=== PATIENT | female | born 1990 | race Caucasian/White ===

== ENCOUNTER 2024-01-31 17:28 | Emergency (ER) | payer OTHER, SELFPAY ==
[2024-01-31 17:51] VITALS: BP 130/88; BP 161/96; PULSE 91; PULSE 96; RESP 18; TEMP 36.8; O2SAT 100; O2SAT 99; BMI 23.0
[2024-01-31 17:56] VITALS: PULSE 82; RESP 14; O2SAT 98
--- NOTE | 2024-01-31 17:58 | PC.NURSE ---
patient comes in on a section 12 from [facility] due to increasing SI with no clear plan. Patient is calm and cooperative with care thus far, requesting to go to [facility] [place] [facility]. Patient otherwise offers no complaints, denies AH/VH/HI.
[2024-01-31 18:33] LABS: Amphetamine Screen Urine Not Detected (Not Detect); Barbiturates, Urine Not Detected (Not Detect); Benzodiazepines Screen Urine Not Detected (Not Detect); Buprenorphine Scr Positive (Not Detect); Cannabinoid Screen Urine Not Detected (Not Detect); Cocaine Screen Urine Not Detected (Not Detect); Fentanyl, urine Not Detected (Not Detect); Methadone Screen, Urine Not Detected (Not Detect); Opiate Screen Urine Not Detected (Not Detect); Oxycodone Screen Urine Not Detected (Not Detect); Phencyclidine Screen Urine Not Detected (Not Detect)
--- NOTE | 2024-01-31 18:40 | ED_ITS ---
HPI - General Adult General Chief complaint: Psychiatric Symptoms Stated complaint: SI,SECT 12 Time Seen by Provider: 01/31/24 17:59 Source: patient Mode of arrival: ambulatory Limitations: no limitations History of Present Illness HPI narrative: 33-year-old female past medical history of PTSD and depression presents to ED for suicidal thoughts with no plan. Patient already seen by [facility] and was section 12. Patient states feeling overwhelmed. Patient denies any physical complaints. States compliant with meds. Patient currently does not have a therapist Related Data Home Medications ?Medication ?Instructions ?Recorded ?Confirmed clonidine HCl 0.2 mg tablet 0.2 mg PO BID 01/31/24 01/31/24 gabapentin 300 mg capsule 300 mg PO TID 01/31/24 01/31/24 nicotine (polacrilex) 2 mg buccal 2 mg Q2-3H PRN Nicotine Cravings 01/31/24 01/31/24 mini lozenge buprenorphine 12 mg-naloxone 3 mg 1 film sublingual DAILY 02/01/24 02/01/24 sublingual film (Suboxone) bupropion HCl 300 mg 24 hr tablet, 300 mg PO DAILY 02/01/24 02/01/24 extended release Allergies Allergy/AdvReac Type Severity Reaction Status Date / Time No Known Allergies Allergy Verified 01/31/24 17:53 Review of Systems 2 Review of Systems: Suicidal thoughts no plan Yes all other systems are reviewed and are negative [facility] Social History Social History Smoked in Last 30 Days: Yes Use of substances other than those prescribed or required for medical reasons: No Advance Directives: No Advance Directives Information Provided: No Patient : No Physical Exam ED Vital Signs: Vital Signs - 24 hr 01/31/24 17:51 01/31/24 17:56 01/31/24 22:15 Temperature 98.3 F 98.4 F Pulse Rate 91 82 77 Respiratory Rate 18 14 20 Blood Pressure 161/96 H 156/94 H Pulse Oximetry 100 98 100 Oxygen Delivery Method Room Air Room Air Room Air 02/01/24 02:40 02/01/24 07:20 Temperature 97.4 F 98.6 F Pulse Rate 72 65 Respiratory Rate 16 16 Blood Pressure 135/77 145/85 H Pulse Oximetry 99 100 Oxygen Delivery Method Room Air Room Air BMI result Body Mass Index 23.0 Const General: cooperative, healthy appearing, comfortable, no acute distress, well developed, alert, awake and Physically active Orientation/consciousness: oriented to person, oriented to place, oriented to time and patient oriented x3 [facility] Head: Yes normal to inspection, Yes No palpable skull fracture present, Yes normocephalic, Yes atraumatic and No abrasion Eyes General: appearance normal, both eyes and all related structures Neck Neck: Yes normal visual inspection, Yes full ROM, Yes no lymphadenopathy, Yes no meningeal signs, Yes trachea midline, Yes supple, No anterior neck swelling and No tender Chest Chest palpation & inspection: normal inspection of the chest and normal palpation of entire chest wall Resp Effort & Inspection: normal respiratory effort and able to speak in complete sentences Auscultation: clear to auscultation bilaterally Cardio Jugular venous distension: no JVD Heart sounds: S1 normal heart sound present and S2 normal heart sound present GI Inspection: Yes normal to inspection Palpation (GI): Soft to palpation, not firm, nontender, no guarding and not rigid General: Yes no CVA tenderness Back/Spine/Pelvis Back: no CVA tenderness and No back tenderness Skin General skin exam: no rashes or lesions noted, elasticity normal and turgor normal Neuro General: oriented to person, oriented to place, oriented to time, patient oriented x3, gait normal, tone normal, moves all extremities, Normal light touch and pain sensation, no meningeal signs, no focal motor deficits, CN's II-XI intact bilaterally and normal sensation to monofilament Extrem General: Yes normal to inspection, Yes full ROM and Yes capillary refill normal Psych Appearance: grossly normal, well kempt and not disheveled Course Reevaluation(s) Reevaluation #1: End of physician observation, patient being transferred to [facility], resting comfortably, no distress Time: 07:44 Medications Administered Discontinued Medications Generic Name Dose Route Start Last Admin Trade Name Michealq PRN Reason Stop Dose Admin Acetaminophen 975 mg 02/01/24 08:49 02/01/24 09:01 Acetaminophen 325 Mg Tablet PO 02/01/24 08:50 975 mg ONCE ONE Administration Buprenorphine/Naloxone 1 film 02/01/24 10:46 02/01/24 11:13 Buprenorphine/Naloxone 12/3 Mg Film SUBLINGUAL 02/01/24 10:47 1 film ONCE ONE Administration Bupropion HCl 300 mg 02/01/24 08:49 02/01/24 09:01 Bupropion Hcl Xl 300 Mg Tab.Er.24h PO 02/01/24 08:50 300 mg ONCE ONE Administration Clonidine HCl 0.2 mg 01/31/24 22:30 02/01/24 09:01 Clonidine Hcl 0.2 Mg Tablet PO 0.2 mg BID IVANIA Administration Protocol Gabapentin 300 mg 01/31/24 22:30 02/01/24 09:01 Gabapentin 300 Mg Capsule PO 300 mg TID IVANIA Administration Ibuprofen 600 mg 01/31/24 21:22 01/31/24 21:32 Ibuprofen 600 Mg Tablet PO 01/31/24 21:23 600 mg ONCE ONE Administration Melatonin 9 mg 02/01/24 01:27 02/01/24 01:36 Melatonin 3 Mg Tablet PO 02/01/24 01:28 9 mg ONCE ONE Administration Nicotine Polacrilex 2 mg 01/31/24 23:50 02/01/24 00:21 Nicotine Polacrilex Lozenge 2 Mg Lozenge BUCCAL 01/31/24 23:51 2 mg ONCE ONE Administration Medical Decision Making Medical Decision Making [facility] Narrative: 33-year-old female presents to ED for suicidal ideation without any plan. Patient will have labs drawn. Waiting plan for [facility]. RME; patient's labs are normal baseline. Care team consulted states patient will be going to [facility]. Differential Diagnosis Differential Diagnoses: The differential diagnosis associated with the presentation includes (Depression, suicidal) Admission/Observation Consideration of admission/observation: Escalation of care including admission/observation considered Consult Healthcare Provider Management of the patient was discussed with: Jumbo Operator (RADHA) Lab Data [facility] Lab Attestation statement: I reviewed the patient's lab results. 01/31/24 18:41 01/31/24 18:40 Labs: Lab Results 01/31/24 01/31/24 01/31/24 Range/Units 18:05 18:40 18:41 WBC 9.8 (4.8-10.8) X10*3/uL RBC 3.95 L (4.20-5.50) X10*6/uL Hgb 12.9 (12.0-16.0) g/dl Hct 36.5 L (37.0-47.0) % MCV 92.4 (80.0-98.0) fL MCH 32.7 (27.0-33.0) pg MCHC 35.3 H (31.0-35.0) g/dl RDW 11.6 (11.0-16.0) % Plt Count 259 (160-400) X10*3/uL MPV 10.9 (9.4-12.3) fL Immature Gran % (Auto) 0.3 (0.0-0.4) % Neut % (Auto) 77.5 H (45-73) % Lymph % (Auto) 16.3 L (20-40) % [place] % (Auto) 4.8 (2-11) % Eos % (Auto) 0.6 (0-4) % Baso % (Auto) 0.5 (0-2) % Lymph # (Auto) 1.6 (1.2-4.9) X10*3/uL [place] # (Auto) 0.5 (0.1-1.2) X10*3/uL Eos # (Auto) 0.1 (0.0-0.4) X10*3/uL Baso # (Auto) 0.1 (0.0-0.2) X10*3/uL Abs Immat Gran (auto) 0.03 (0.00-0.03) X10*3/uL Absolute Neuts (auto) 7.6 (2.0-8.3) x10*3/uL Absolute Nucleated RBC 0.000 (0.0-0.012) X10*3/uL Nucleated RBC % (auto) 0.0 (0.0-0.2) /100WBC Sodium 138 (135-145) mmol/L Potassium 4.6 (3.3-5.1) mmol/L Chloride 105 (96-108) mmol/L Carbon Dioxide 25 (22-29) mmol/L Anion Gap 13 (12-20) BUN 8 L (9-16) mg/dL Creatinine 0.71 (0.5-1.4) mg/dL Estim Creat Clear Calc 91.5 Estimated GFR > 60 Random Glucose 106 (60-115) mg/dL Calcium 9.5 (8.4-10.2) mg/dL Total Bilirubin 0.2 (0.0-1.0) mg/dL AST 14 (5-31) U/L ALT 12 (0-31) U/L Alkaline Phosphatase 56 (39-117) U/L Total Protein 7.2 (6.5-8.0) g/dL Albumin 4.7 (3.5-5.0) g/dL Urine Color Yellow Urine Appearance Clear Urine pH 8.5 (5.0-9.0) Ur Specific [place] 1.010 (1.005-1.025) Urine Protein Negative (Neg-Trace) mg/dL Urine Glucose (UA) Negative (Negative) mg/dL Urine Ketones Negative (Negative) mg/dL Urine Blood Negative (Negative) Urine Nitrite Negative (Negative) Ur Leukocyte Esterase Negative (Negative) Urine Test NEGATIVE (NEGATIVE) Urine Opiates Screen Not Detected (Not Detect) Ur Buprenorphine Scrn Positive H (Not Detect) ng/mL Ur Oxycodone Screen Not Detected (Not Detect) ng/mL Urine Methadone Screen Not Detected (Not Detect) ng/mL Urine Fentanyl Screen Not Detected (Not Detect) Ur Barbiturates Screen Not Detected (Not Detect) Ur Phencyclidine Scrn Not Detected (Not Detect) Ur Amphetamines Screen Not Detected (Not Detect) U Benzodiazepines Scrn Not Detected (Not Detect) Urine Cocaine Screen Not Detected (Not Detect) U Marijuana (THC) Screen Not Detected (Not Detect) Ethyl Alcohol < 10 mg/dL Independent Historian Clinical information obtained from an independent historian. History obtained from or confirmed by: Other (patients) External Record Review External record reviewed: Other (prior visits) Discharge Plan Discharge Clinical Impression: Depression Patient [facility]position[facility] Transfer Details: TO [facility], admission for depression Instructions: Depression (DC) Prescriptions: No Action clonidine HCl 0.2 mg tablet 0.2 mg PO BID gabapentin 300 mg capsule 300 mg PO TID nicotine (polacrilex) 2 mg mini lozenge 2 mg Q2-3H PRN (Reason: Nicotine Cravings) buprenorphine-naloxone [Suboxone] 12-3 mg film 1 film sublingual DAILY bupropion HCl 300 mg tablet extended release 24 hr 300 mg PO DAILY Interventions: [place]-Suicide Risk Severity Scale Last Done: 01/31/24 17:56 Discharge Date/Time: 02/01/24 12:39 Print Language: Cymraes
[2024-01-31 18:41] LABS: Appearance Urine Clear; Color Urine Yellow; Glucose Urine UA Negative (Negative); Leukocyte Esterase Urine Negative (Negative); Nitrite Urine Negative (Negative); PH 8.5 (5.0-9.0); Urine Blood Negative (Negative); Urine Ketones Negative (Negative); Urine Protein Negative (Neg-Trace)
[2024-01-31 18:48] LABS: MANUAL DIFF FLAG NO
[2024-01-31 19:08] LABS: Alanine Aminotransferase 12 U/L (0-31); Albumin Level 4.7 g/dL (3.5-5.0); Alkaline Phosphatase 56 U/L (39-117); Anion Gap 13 (12-20); Aspartate Amino Transferase 14 U/L (5-31); Bilirubin Total 0.2 mg/dL (0.0-1.0); Blood Urea Nitrogen 8 mg/dL (9-16); Calcium 9.5 mg/dL (8.4-10.2); Carbon Dioxide 25 mmol/L (22-29); Chloride 105 mmol/L (96-108); Creatinine Clr Calc Pharmacy 91.5; Estimated Glomerular Filt Rate > 60; Ethanol < 10 mg/dL; Glucose Random 106 mg/dL (60-115); Potassium 4.6 mmol/L (3.3-5.1); Sodium 138 mmol/L (135-145); Total Protein 7.2 g/dL (6.5-8.0)
--- NOTE | 2024-01-31 19:09 | PC.NURSE ---
patient appears to remain at rest at present respirations are even and unlabored patient appears in no distress.
[2024-01-31 19:21] LABS: Basophils Absolute Auto 0.1 X10*3/uL (0.0-0.2); Basophils Percent Auto 0.5 % (0-2); Eosinophils Absolute Auto 0.1 X10*3/uL (0.0-0.4); Eosinophils Percent Auto 0.6 % (0-4); Hematocrit 36.5 % (37.0-47.0); Hemoglobin 12.9 g/dl (12.0-16.0); Imm Gran Abs Auto 0.03 X10*3/uL (0.00-0.03); Imm Gran Pct Auto 0.3 % (0.0-0.4); Lymphocytes Absolute Auto 1.6 X10*3/uL (1.2-4.9); Lymphocytes Percent Auto 16.3 % (20-40); Mean Corpuscular HGB Conc 35.3 g/dl (31.0-35.0); Mean Corpuscular Hemoglobin 32.7 pg (27.0-33.0); Mean Corpuscular Volume 92.4 fL (80.0-98.0); Mean Platelet Volume 10.9 fL (9.4-12.3); Monocytes Absolute Auto 0.5 X10*3/uL (0.1-1.2); Monocytes Percent Auto 4.8 % (2-11); Neutrophils Absolute Auto 7.6 x10*3/uL (2.0-8.3); Neutrophils Percent Auto 77.5 % (45-73); Platelet Count 259 X10*3/uL (160-400); Red Blood Count 3.95 X10*6/uL (4.20-5.50); Red Cell Distribution Width 11.6 % (11.0-16.0); White Blood Count 9.8 X10*3/uL (4.8-10.8)
[2024-01-31] MEDS: Ibuprofen 600 MG TABLET PO (21:32)
[2024-01-31 22:15] VITALS: BP 156/94; PULSE 77; RESP 20; TEMP 36.9; O2SAT 100
[2024-01-31] MEDS: Gabapentin 300 MG CAPSULE PO (22:46)
[2024-01-31] MEDS: cloNIDine HCL 0.2 MG TABLET PO (22:46)
[2024-02-01] MEDS: Nicotine Polacrilex Lozenge 2 MG LOZENGE BUCCAL (00:21)
[2024-02-01] MEDS: Melatonin 3 MG TABLET 9 MG PO (01:36)
[2024-02-01 02:40] VITALS: BP 135/77; PULSE 72; RESP 16; TEMP 36.3; O2SAT 99
[2024-02-01 03:50] LABS: UPreg QC Valid YES; Urine Pregnancy NEGATIVE (NEGATIVE)
[2024-02-01 07:20] VITALS: BP 145/85; PULSE 65; RESP 16; TEMP 37; O2SAT 100
--- NOTE | 2024-02-01 07:53 | PC.NURSE ---
Assumed care of patient at 0645, continue plan of care for transfer to [facility] at 1300 today, patient aware of plan of care. Patient is calm and cooperative, respirations even and unlabored, skin pwd, no apparent distress noted.
--- NOTE | 2024-02-01 08:18 | PC.NURSE ---
report given to Nitin COOPER over the phone
--- NOTE | 2024-02-01 08:46 | PC.NURSE ---
Spoke to [facility] pharmacy to verify suboxone dose.
[2024-02-01] MEDS: Gabapentin 300 MG CAPSULE PO (09:01)
[2024-02-01] MEDS: cloNIDine HCL 0.2 MG TABLET PO (09:01)
[2024-02-01] MEDS: Acetaminophen 325 MG TABLET 975 MG PO (09:01)
[2024-02-01] MEDS: buPROPion HCl XL 300 MG TAB.ER.24H PO (09:01)
--- NOTE | 2024-02-01 09:23 | MHC.CARE ---
Call to [facility], accepting MD is She Kraus and the intake is scheduled for 1pm
[2024-02-01] MEDS: Buprenorphine/Naloxone 12/3 mg FILM 1 FILM SUBLINGUAL (11:13)
== END 2024-02-01 12:39 ==
PROVIDERS: Physician Assistant; Emergency Provider Emergency Medicine; PCP Physician Assistant
DX: F32.A Depression, unspecified (principal); Z79.899 Other long term (current) drug therapy
CPT/HCPCS: 36415; 80053; 80307; 81003; 81025; 85025; 99285